=== PATIENT | female | born 2000 ===

== ENCOUNTER 2021-09-19 03:14 | Emergency (ER) | payer SELFPAY ==
[2021-09-19] MEDS ORDERED: Ibuprofen 200 MG TAB ONE (04:18)
== END 2021-09-19 04:52 | disposition home or self-care (01) ==
LOC: ERS 03:14
DX: S62.322A Displaced fracture of shaft of third metacarpal bone, right hand, initial encounter for closed fracture (principal); V47.6XXA Car passenger injured in collision with fixed or stationary object in traffic accident, initial encounter
CPT/HCPCS: 29125